=== PATIENT | female | born 1945 | race Caucasian/White ===

== ENCOUNTER 2019-10-21 11:18 | Emergency (ER) | payer MEDICARE, OTHER, SELFPAY ==
--- NOTE | ~2019-10-21 | XR_ITS ---
XR chest 2V DATE: 10/21/2019 12:18 INDICATION: Fever, sore throat, weakness TECHNIQUE: PA and lateral views COMPARISON: 08/01/2019 AP and lateral chest FINDINGS: Normal heart size. No hilar or mediastinal enlargement. No pulmonary infiltrate or consolid ation, pleural effusion or pulmonary vascular congestion or pneumothorax. There is some increased density overlying the right apex probably associated with the right first rib based upon comparison with 08/01/2019 AP and lateral chest. There is degenerative spurring of the thoracic and lumbar spine. IMPRESSION: No active cardiopulmonary disease Reviewed, dictated and finalized at location B.
--- NOTE | 2019-10-21 11:48 | ECG_ITS ---
Measurements Intervals [place] Rate: 70 P: 58 NC: 144 QRS: -14 QRSD: 85 T: 16 QT: 374 QTc: 404 Interpretive Statements SINUS RHYTHM MINIMAL Q WAVES- LATERAL LEADS NONSPECIFIC T-WAVE ABNORMALITY- ANT/INF LEADS BORDERLINE ECG Electronically Signed On 10-21-2019 14:16:05 CDT by Kwan Marinelli D.O.
[2019-10-21 11:50] VITALS: BP 127/63; PULSE 81; RESP 18; TEMP 36.8; O2SAT 99
[2019-10-21 12:08] LABS: Glucose Point of Care 108 (65-105)
[2019-10-21 12:16] LABS: Basophils Absolute Auto 0.1 K/mm3 (0.0-0.1); Basophils Percent Auto 1.1 % (0.2-1.2); Eosinophils Percent Auto 0.3 % (0-4.4); Hematocrit 38.5 % (37.0-47.0); Hemoglobin 13.3 g/dL (12.0-15.0); Immature Granulocyte Absolute 0.01 K/mm3 (0.00-0.031); Immature Granulocyte Percent A 0.2 % (0-0.5); Lymphocytes Absolute Auto 2.22 K/mm3 (0.9-3.2); Lymphocytes Percent Auto 36.2 % (18.3-44.2); Mean Corpuscular HGB Conc 34.5 g/dl (32-36); Mean Corpuscular Hemoglobin 30.8 pg (26-34); Mean Corpuscular Volume 89.1 fl (80-100); Mean Platelet Volume 9.3 fl (7.4-10.4); Monocytes Absolute Auto 0.4 K/mm3 (0.1-0.6); Neutrophils Absolute Auto 3.4 K/mm3 (1.3-6.7); Neutrophils Percent Auto 55.2 % (45.5-73.1); Platelet Count Result 267 k/mm3 (150-375); Red Blood Count 4.32 M/mm3 (4.2-5.4); Red Cell Distribution Width 11.5 % (11.5-14.5); White Blood Count 6.1 K/mm3 (4.5-10.0)
[2019-10-21 12:29] LABS: Alanine Aminotransferase 27 U/L (4-35); Albumin Level 4.8 g/dL (3.5-5.1); Alkaline Phosphatase 63 U/L (38-126); Aspartate Amino Transferase 35 U/L (14-36); Bilirubin,Total 0.6 mg/dL (0.2-1.3); Blood Urea Nitrogen 14 mg/dL (7-17); Calcium 10.2 mg/dL (8.4-10.2); Carbon Dioxide 30 mmol/L (22-30); Chloride 102 mmol/L (98-107); Estimated CRCL calculation 50 ml/min; Estimated Glomerular Filt Rate > 60; Glucose 102 mg/dL (65-105); Potassium 4.1 mmol/L (3.4-5.0); Sodium 139 mmol/L (137-145)
[2019-10-21 12:50] VITALS: PULSE 88
[2019-10-21 12:51] VITALS: BP 151/77; PULSE 78; RESP 16; TEMP 37.3; O2SAT 100
--- NOTE | 2019-10-21 13:02 | ED.WEAKNESS ---
HPI - Weakness General Chief complaint: Weakness Stated complaint: weakness/hand numbness Time Seen by Provider: 10/21/19 12:58 Source: patient and RN notes reviewed Mode of arrival: ambulatory Limitations: no limitations History of Present Illness HPI Narrative: Pt is a 74 y/o female presenting to the ED c/o generalized weakness. Pt reports she started experiencing generalized weakness 3 days ago along with body aches, dizziness, diaphoresis, chills, FERRO, bilateral hand numbness, subjective fever, mild diarrhea, nausea, and mild SOB. Pt denies cough, ST, rhinorrhea, vomiting, CP, dysuria, or urinary frequency. Pt states she has been taking Tylenol, DayQuil, and Mucinex for her Sx's. Pt notes her PCP is Dr. Acevedo. Onset (ago): day(s) (3) Location: generalized Associated symptoms: diaphoresis, fever/chills (Chills, subjective fever), headaches, nausea/vomiting (Nausea, no vomiting), shortness of breath (Mild) and other (Body aches; Dizziness; Bilateral hand numbness; Mild diarrhea) Related Data Home Medications Medication Instructions Recorded Confirmed acetaminophen 500 mg tablet 500 mg PO Q4H PRN 07/06/19 10/19/19 aspirin 81 mg tablet,delayed 81 mg PO DAILY 07/06/19 10/19/19 release benzonatate 100 mg capsule 100 mg PO TID 07/06/19 10/19/19 calcium carbonate 600 mg calcium 600 mg PO BID 07/06/19 10/19/19 (1,500 mg) tablet cetirizine 10 mg tablet 5 mg PO DAILY PRN 07/06/19 10/19/19 cholecalciferol (vitamin D3) 25 1,000 unit PO DAILY 07/06/19 10/19/19 mcg (1,000 unit) capsule clobetasol 0.05 % scalp solution 1 applic TOPICAL BID 07/06/19 10/19/19 fluticasone propionate 50 2 spray NASAL DAILY 07/06/19 10/19/19 mcg/actuation nasal spray,suspension hydrochlorothiazide 12.5 mg tablet 12.5 mg PO DAILY 07/06/19 10/19/19 levothyroxine 50 mcg tablet 50 mcg PO DAILY 07/06/19 10/19/19 lisinopril 20 mg tablet 20 mg PO DAILY 07/06/19 10/19/19 simvastatin 40 mg tablet 40 mg PO DAILY 07/06/19 10/19/19 Allergies Allergy/AdvReac Type Severity Reaction Status Date / Time No Known Allergies Allergy Verified 10/19/19 10:14 Review of Systems Review of Systems: All systems reviewed & are unremarkable except as noted in HPI and below Constitutional: Constitutional: Reports body ache(s), Reports chills, Reports fever(s) (Subjective) and Reports weakness (Generalized) ENT: Denies sore throat and Denies other (Rhinorrhea) Cardiovascular: Cardiovascular: Denies chest pain and Reports diaphoresis Respiratory: Respiratory: Denies cough and Reports dyspnea (Mild) Gastrointestinal: Gastrointestinal: Reports diarrhea (Mild), Reports nausea and Denies vomiting Genitourinary: Genitourinary: Denies nocturia and Denies dysuria Neurologic: Reports dizziness, Reports headache(s) and Reports numbness (Bilateral hand) PMFSH Past Medical History Medical History (Updated 10/21/19 @ 14:41 by Ivonne Hernandez MD) Abdominal discomfort Anxiety Aortic regurgitation Bloating CAD (coronary artery disease) H/O: HTN (hypertension) Hypercholesteremia Pancreatic duct dilated Syncope Weight loss Surgical History Surgical History History of hysterectomy Hx of cardiac cath Stented coronary artery Social History Social History Smoking status: Never smoker Alcohol intake: current Gender identity (if verbalized by the patient): Female Exam Const: General: cooperative, no acute distress and alert Nutritional Appearance: well nourished Orientation/consciousness: patient oriented x3 Limitations: no limitations HENMT: Mouth: Yes lip normal Resp: Effort & Inspection: normal respiratory effort Auscultation: clear to auscultation bilaterally Cardio: Rate: regular rate Rhythm: regular rhythm GI: GI Palp: Yes Soft to palpation and No Tenderness to palpation present (GI) Auscultation: normal bowel sounds Skin: General skin exam: normal col
[2019-10-21 13:09] LABS: Add Urine Microscopic? YES; Appearance Urine Clear (Clear); Bilirubin Urine Negative (Negative); Blood Urine Negative (Negative); Color Urine Yellow (Yellow); Glucose Urine UA Negative (Negative); Ketones Urine Negative (Negative); Leukocyte Esterase Ur Negative LEU/UL (Negative); Mucus Urine Rare /lpf; Nitrate Urine Negative (Negative); Protein Urine Negative (Negative); RBC Urine 0-2 /hpf (0-2); Specific Grav Ur 1.016 (1.001-1.035); Squamous Epithelial Cell Urine Rare /hpf (Few); Urobilinogen Urine Negative mg/dL (<2.0); WBC Urine 0-3 /hpf
[2019-10-21 13:53] VITALS: BP 135/75; BP 136/74; BP 145/86; PULSE 74; PULSE 77; PULSE 85; RESP 16; O2SAT 97
== END 2019-10-21 15:25 | disposition home or self-care (01) ==
PROVIDERS: Emergency Provider Emergency Medicine; PCP Family Medicine
DX: I25.10 Atherosclerotic heart disease of native coronary artery without angina pectoris (principal); E78.00 Pure hypercholesterolemia, unspecified; Z95.5 Presence of coronary angioplasty implant and graft; Z79.82 Long term (current) use of aspirin; R94.31 Abnormal electrocardiogram [ECG] [EKG]
CPT/HCPCS: 36415; 71046; 80053; 81001; 82948; 84443; 85025; 87804; 93005; 99283

== ENCOUNTER 2022-01-16 08:45 | Outpatient (CLI) | payer MEDICARE, OTHER, SELFPAY ==
[2022-01-16 09:10] LABS: Hematocrit 37.7 % (37.0-47.0); Mean Corpuscular HGB Conc 34.5 g/dl (32-36); Mean Corpuscular Hemoglobin 31.2 pg (26-34); Mean Corpuscular Volume 90.4 fl (80-100); Mean Platelet Volume 9.1 fl (7.4-10.4); Platelet Count Result 226 k/mm3 (150-375); Red Blood Count 4.17 M/mm3 (4.2-5.4); Red Cell Distribution Width 11.7 % (11.5-14.5); White Blood Count 5.4 K/mm3 (4.5-10.0)
[2022-01-16 10:05] LABS: Alanine Aminotransferase 19 U/L (6-35); Albumin Level 4.9 g/dL (3.5-5.1); Alkaline Phosphatase 62 U/L (38-126); Anion Gap 9 mmol/L (8-16); Aspartate Amino Transferase 30 U/L (14-36); Bilirubin,Total 0.5 mg/dL (0.2-1.3); Blood Urea Nitrogen 20 mg/dL (7-17); Carbon Dioxide 27 mmol/L (22-30); Chloride 107 mmol/L (98-107); Cholesterol 152 mg/dL (0-200); Estimated Glomerular Filt Rate > 60; Glucose 106 mg/dL (65-110); HDL Direct 44 mg/dL; Potassium 4.4 mmol/L (3.4-5.0); Sodium 143 mmol/L (137-145); Triglycerides 156 mg/dL (<150)
[2022-01-16 10:16] LABS: LDL Cholesterol Direct 65 mg/dL
[2022-01-16 10:25] LABS: Vitamin D 25 Hydroxy 57.9 ng/mL
[2022-01-16 10:44] LABS: T4 Thyroxine 9.48 ug/dL (5.53-11.0)
== END 2022-01-16 08:46 | disposition home or self-care (01) ==
PROVIDERS: PCP Family Medicine; Visit Provider Nurse Practitioner Family
DX: E03.9 Hypothyroidism, unspecified (principal); I10 Essential (primary) hypertension; E55.9 Vitamin D deficiency, unspecified; R14.0 Abdominal distension (gaseous)
CPT/HCPCS: 36415; 80053; 80061; 82306; 84436; 84443; 85027

== ENCOUNTER 2022-12-31 15:52 | Outpatient (CLI) | payer MEDICARE, OTHER, SELFPAY ==
--- NOTE | ~2022-12-31 | XR_ITS ---
EXAMINATION: XR sternum min 2V DATE: 12/31/2022 16:29 INDICATION: Unspecified fall, initial encounter. TECHNIQUE: 2 views of the sternum were obtained. COMPARISON: Chest 2 views 10/21/2019 FINDINGS: Bone alignment is normal. There is a transverse fracture involving medial third of right cl avicle. The sternum is normal. IMPRESSION: 1. Transverse fracture involving medial third of right clavicle. 2. Normal sternum. Reviewed, dictated and finalized at location A.
--- NOTE | ~2022-12-31 | XR_ITS ---
EXAMINATION: XR sternoclavicular joint BI DATE: 12/31/2022 16:29 INDICATION: Other specified disorders of bone. TECHNIQUE: 3 views of the sternoclavicular joints were obtained. COMPARISON: Chest 2 views 10/21/2019 FINDINGS: Bone alignment is normal. There is a transverse fracture involving the medial third of righ t clavicle. The distal fracture fragment demonstrates 3 mm inferior displacement. There is mild osteo arthritis of the sternoclavicular joints. IMPRESSION: 1. Transverse fracture involving the medial third of right clavicle. Reviewed, dictated and finalized at location A.
== END 2022-12-31 15:53 | disposition home or self-care (01) ==
PROVIDERS: PCP Family Medicine; Visit Provider Nurse Practitioner Family
DX: M89.8X1 Other specified disorders of bone, shoulder (principal); S42.011A Anterior displaced fracture of sternal end of right clavicle, initial encounter for closed fracture; X58.XXXA Exposure to other specified factors, initial encounter
CPT/HCPCS: 71120; 71130

== ENCOUNTER 2023-01-03 07:21 | Outpatient (CLI) | payer MEDICARE, OTHER, SELFPAY ==
--- NOTE | ~2023-01-03 | CT_ITS ---
EXAMINATION: CT soft tissue neck chest w DATE: 01/03/2023 08:21 INDICATION: Right clavicle fracture. TECHNIQUE: Computed tomography (CT) of the neck and chest was performed with 75 mL Omnipaque-350 intr avenous contrast. Automated exposure control and iterative reconstruction technique were employed. Th e dose-length product was 422.21 mGy-cm. COMPARISON: Sternoclavicular joint radiographs 12/31/2022 FINDINGS: CT NECK: There are no pathologically enlarged lymph nodes. There is mild plaque in the proximal inter nal carotid arteries with 0% stenosis relative to normal distal artery lumen diameters. There is apolonia re cervical spondylosis. CT CHEST: The lungs demonstrate mild atelectasis. A calcified right lung nodule and calcified mediast inal lymph nodes are consistent with old granulomatous disease. No pleural effusion. The heart size i s normal. No pericardial effusion. There are coronary artery calcifications. There is no pericardial effusion. There is cortical thinning of right kidney. There is an oblique fracture involving medial r ight clavicle. The distal fracture fragment demonstrates 6 mm anterior displacement, 2 mm inferior di splacement, and 2 mm overriding. There is severe spondylosis at T5-T6 and mild to moderate spondylosi s at other levels. IMPRESSION: 1. Oblique fracture of medial right clavicle. Reviewed, dictated and finalized at location A.
[2023-01-03 08:13] LABS: Estimated Glomerular Filt Rate > 60
== END 2023-01-03 07:22 | disposition home or self-care (01) ==
LOC: ANHIMG 07:24
PROVIDERS: PCP Family Medicine; Visit Provider Nurse Practitioner Family
DX: S42.001D Fracture of unspecified part of right clavicle, subsequent encounter for fracture with routine healing (principal); X58.XXXD Exposure to other specified factors, subsequent encounter
CPT/HCPCS: 70491; 71260; Q9967

== ENCOUNTER 2023-01-15 15:15 | Outpatient (CLI) | payer MEDICARE, OTHER, SELFPAY ==
[2023-01-16 08:04] LABS: Hemoglobin 12.9 g/dL (12.0-15.0); Red Blood Count 4.15 M/mm3 (4.2-5.4); White Blood Count 5.2 K/mm3 (4.5-10.0)
[2023-01-16 08:05] LABS: Hematocrit 37.7 % (37.0-47.0); Mean Corpuscular HGB Conc 34.2 g/dl (32-36); Mean Corpuscular Hemoglobin 31.1 pg (26-34); Mean Corpuscular Volume 90.8 fl (80-100); Mean Platelet Volume 8.9 fl (7.4-10.4); Platelet Count Result 244 k/mm3 (150-375); Red Cell Distribution Width 11.8 % (11.5-14.5)
[2023-01-16 08:07] LABS: Alanine Aminotransferase 27 U/L (6-35); Albumin Level 4.6 g/dL (3.5-5.1); Alkaline Phosphatase 60 U/L (38-126); Anion Gap 6 mmol/L (8-16); Aspartate Amino Transferase 36 U/L (14-36); Bilirubin,Total 0.7 mg/dL (0.2-1.3); Blood Urea Nitrogen 24 mg/dL (7-17); Calcium 9.1 mg/dL (8.4-10.2); Carbon Dioxide 30 mmol/L (22-30); Chloride 102 mmol/L (98-107); Cholesterol 145 mg/dL (0-200); Estimated Glomerular Filt Rate > 60; Free T4 Free Thyroxine 1.05 ng/mL (0.78-2.19); Glucose 104 mg/dL (65-110); HDL Direct 42 mg/dL; LDL Cholesterol Direct 64 mg/dL; Potassium 4.5 mmol/L (3.4-5.0); Sodium 138 mmol/L (137-145); Triglycerides 213 mg/dL (<150)
[2023-01-16 08:40] LABS: Vitamin D 25 Hydroxy 43.3 ng/mL
== END 2023-01-15 15:16 | disposition home or self-care (01) ==
LOC: ANHLAB 15:18
PROVIDERS: PCP Family Medicine; Visit Provider Family Medicine
DX: E03.9 Hypothyroidism, unspecified (principal); E55.9 Vitamin D deficiency, unspecified; I10 Essential (primary) hypertension; K86.89 Other specified diseases of pancreas; E78.2 Mixed hyperlipidemia; Z13.228 Encounter for screening for other metabolic disorders
CPT/HCPCS: 36415; 80053; 80061; 82306; 84439; 84443; 85027

== ENCOUNTER 2023-02-11 09:17 | Outpatient (CLI) | payer MEDICARE, OTHER, SELFPAY ==
--- NOTE | ~2023-02-11 | XR_ITS ---
Lumbosacral Spine: AP, oblique, and lateral views, with neutral, flexion, and extension positioning Clinical History: Pain Findings: The normal lordotic curve is maintained. The vertebral bodies and posterior elements are i ntact. No instability evident on flexion or extension. There is moderate degenerative disc narrowing at L4-L5. There is moderate to advanced facet arthropathy at L4-L5 and L5-S1. The sacroiliac joints a re normally outlined. Impression: Moderate degenerative spondylosis at the lower lumbar spine. No fracture or subluxation. No instability evident. Reviewed, dictated and finalized at location . Impression: Moderate degenerative spondylosis at the lower lumbar spine. No fracture or subluxation. No instability evident.
--- NOTE | ~2023-02-11 | XR_ITS ---
AP view of the pelvis and AP and lateral views of the left hip Clinical history: Pain Findings: No acute fracture or dislocation is seen. Osseous alignment is anatomic. Bilateral hip and SI joint spaces are preserved. Soft tissues are unremarkable. Impression: No significant abnormality is seen. Reviewed, dictated and finalized at [facility]. Impression: No significant abnormality is seen.
== END 2023-02-11 09:18 | disposition home or self-care (01) ==
PROVIDERS: PCP Family Medicine; Visit Provider Family Medicine
DX: M25.552 Pain in left hip (principal); M54.50 Low back pain, unspecified; R20.0 Anesthesia of skin
CPT/HCPCS: 72114; 73502

== ENCOUNTER 2023-02-24 07:47 | Outpatient (CLI) | payer MEDICARE, OTHER, SELFPAY ==
--- NOTE | ~2023-02-24 | MR_ITS ---
MRI of the lumbar spine Clinical History: Spondylosis Technique: Axial T2-weighted images, and sagittal T1-weighted, T2-weighted, and T2 fat-sat images wer e acquired. Findings: There is acute compression fracture at the inferior endplate region of L4, with minimal if any significant loss of height. There is probable additional compression type fracture line at the campuzano perior endplate region of L5 with surrounding marrow edema, without loss of height. Remaining osseous structures are intact. At L1-L2, there is no disc bulge or herniation. There is minimal facet joint hypertrophy. No central canal stenosis or neural foraminal narrowing. At L2-L3, there is minimal disc bulge and minimal facet arthropathy. No central canal stenosis or joanna ral foraminal narrowing. At L3-L4, there is minimal disc bulge with minimal facet arthropathy. No central canal stenosis or ne ural foraminal narrowing. At L4-L5, there is diffuse disc bulge with moderate to advanced facet arthropathy. No central canal s tenosis. There is severe left neural foraminal narrowing and moderate to severe right neural foramina l narrowing. At L5-S1, there is minimal disc bulge with moderate facet arthropathy. No central canal stenosis or n eural foraminal narrowing. Paravertebral soft tissues are unremarkable. Impression: Acute compression fractures of L4 and L5, as detailed above, with minimal, if any, loss of height. Moderate degenerative spondylosis at L4-L5. Reviewed, dictated and finalized at [facility]. Impression: Acute compression fractures of L4 and L5, as detailed above, with minimal, if a ny, loss of height. Moderate degenerative spondylosis at L4-L5.
== END 2023-02-24 07:48 | disposition home or self-care (01) ==
PROVIDERS: PCP Family Medicine; Visit Provider Family Medicine
DX: M47.16 Other spondylosis with myelopathy, lumbar region (principal)
CPT/HCPCS: 72148

== ENCOUNTER 2023-06-03 06:54 | Day surgery (SDC) | payer MEDICARE, OTHER, SELFPAY ==
[2023-05-30 11:25] VITALS: BMI 21.1
--- NOTE | ~2023-06-03 | XR_ITS ---
Indication: Bilateral L4-5 transforaminal epidural steroid injection TECHNIQUE: Fluoroscopy used during Bilateral L4-5 transforaminal epidural steroid injection performe d by [Ezekiel Dhillon MD] on 06/03/2023. Fluoroscopy time is 18 seconds with 3 fluoroscopic imag es captured. FINDINGS: Correlate with procedure note. IMPRESSION: Fluoroscopy used during Bilateral L4-5 transforaminal epidural steroid injection. Reviewed, dictated and finalized at location A. IMPRESSION: Fluoroscopy used during Bilateral L4-5 transforaminal epidural ster oid injection.
--- NOTE | 2023-06-03 05:43 | WPDHPUPDATE1 ---
History and Physical Update Update Date/Time: 06/03/23 05:43 History and Physical has been reviewed, including an updated exam of the patient. There are NO changes in the patient's condition. Risks, benefits, and alternatives have been discussed and questions answered. Patient agrees to proceed with procedure.
[2023-06-03 09:15] VITALS: BP 130/79; PULSE 66; RESP 20; TEMP 37.2; O2SAT 100
[2023-06-03 11:58] VITALS: BP 182/86; PULSE 71; RESP 12; O2SAT 100
[2023-06-03] MEDS: LIDOCAINE HCL 1% PF INJ 5 ML VIAL INFILTRATE (11:59)
[2023-06-03] MEDS: LIDOCAINE HCL 2% PF INJ 5 ML VIAL 2 ML INFILTRATE (11:59)
[2023-06-03 12:04] VITALS: BP 152/72; PULSE 67; RESP 12; O2SAT 100
--- NOTE | 2023-06-03 12:07 | W.PM.PROC2 ---
Procedure Note - Detailed Date of Procedure 06/03/23 Pre-op Diagnosis Lumbar Radiculopathy, Lumbar Spinal Stenosis Post-op Diagnosis Same Procedure Performed bilateral L4-5 transforaminal epidural steroid injection with fluoroscopic guidance and contrast control. Surgeon Ezekile Dhillon MD Anesthesia Local Description of Procedure INFORMED CONSENT: Risks, benefits and alternatives to the procedure were discussed in detail with the patient who expressed explicit understanding and consent to proceed. Patient was informed verbally and in written form regarding the risks associated with the procedure including the low risk of serious infection, bleeding/bruising, allergic reaction, nerve or organ injury, paralysis, procedural site pain or discomfort, worsening pain and/or mobility, failure to treat and/or disfigurement. The patient expressed explicit understanding and consent to proceed. All materials required for the procedure were available prior to procedure start. Site and side was marked prior to procedure and confirmed in the presence of the patient. PROCEDURE IN DETAIL: The patient was brought to the procedural suite and placed in the prone position. Patient was made comfortable with use of pillows under the head/chest, hips and ankles. Skin overlying the injection site was prepared broadly with ChloraPrep applicator and draped in a sterile manner. Aseptic technique was employed throughout. The endplates of the vertebral body at the site of interest were aligned in the AP view. Ipsilateral oblique angulation was utilized to better visualize the neuroforamen of interest. Local anesthesia was established by infiltration with approximately 5 mL of 2% lidocaine via a 1-1/2 inch 27-gauge needle. A 22-gauge 3.5 inch Chris (pencil point) spinal needle was advanced until the needle approached the 6 o'clock position on the pedicle just superior to the exiting nerve root. on the Right at L4-5. Lateral view was utilized to confirm appropriate position of the needle tip within the superior and posterior portion of the respective foramen. In an AP view, 1 mL of Omnipaque 300 contrast medium was injected after negative aspiration for CSF, blood or other bodily fluid, showing appropriate neurogram without evidence of intravascular or intrathecal spread of contrast. Digital subtraction imaging was used with an additional 1ml of the same contrast medium to confirm absence of intravascular contrast spread. A 1mL solution containing 5 mg of dexamethasone was injected after negative repeat aspiration. Appropriate spread of the injectate was confirmed with washout of previously injected contrast. No parasthesias were elicited. Needle was removed completely intact without difficulty. The same exact procedure was repeated for all remaining levels on the contralateral side, left L4-5 neural foramen, modified as necessary to accommodate for the new target location with identical findings and results and no evidence of complication. Images were saved and documented in the patient chart. Patient's skin was cleaned and sterile bandage applied. The patient tolerated the procedure well. The patient was transported to the recovery area in stable condition where they were observed for an appropriate amount of time prior to discharge, without evidence of complication. The patient was instructed to avoid excessive activity for the next 48 hours, including climbing and frequent use of stairs. Showers only for 48 hours. They were instructed not to drive or operate heavy machinery for 24 hours. They are to monitor for severe headaches, fevers, chills, night sweats, erythema/swelling at the site or any other signs of infection, bleeding/bruising, bowel or bladder changes as well as new pain, weakness or numbness in the upper or lower extremity. Should they notice these changes, they are instructed to call our office immediately or report directly to the nearest Emergency Department if no answer
[2023-06-03 12:15] VITALS: BP 130/79; PULSE 66; RESP 20; O2SAT 100
--- NOTE | 2023-06-03 12:23 | SUR.PHASEII ---
bandaid intact upon arrival and discharge
== END 2023-06-03 12:20 | disposition home or self-care (01) ==
LOC: ASC 08:50
PROVIDERS: PCP Family Medicine; Visit Provider Anesthesiology Pain Medicine
PROC: (CPT 64483; principal; 2023-06-03 10:00)
DX: M54.16 Radiculopathy, lumbar region (principal); M48.061 Spinal stenosis, lumbar region without neurogenic claudication
CPT/HCPCS: 64483 ×2; 99199

== ENCOUNTER 2023-07-15 06:43 | Day surgery (SDC) | payer MEDICARE, OTHER, SELFPAY ==
[2023-07-10 09:04] VITALS: BMI 21.7
--- NOTE | ~2023-07-15 | XR_ITS ---
EXAMINATION: XR fluoroscopy no charge INDICATION: Bilateral L3, L4, and L5 medial block TECHNIQUE: 11 intraoperative fluoroscopic images are submitted for review. COMPARISON: None available FINDINGS: Fluoroscopic images demonstrate bilateral injections at L3, L4, and L5. Please refer to pro cedure note for full details. IMPRESSION: 1. Please refer to procedure note for full details. Reviewed, dictated and finalized at location L. AGENT
--- NOTE | 2023-07-15 05:36 | WPDHPUPDATE1 ---
History and Physical Update Update Date/Time: 07/15/23 05:36 History and Physical has been reviewed, including an updated exam of the patient. There are NO changes in the patient's condition. Risks, benefits, and alternatives have been discussed and questions answered. Patient agrees to proceed with procedure.
[2023-07-15 08:19] VITALS: BP 143/69; PULSE 68; RESP 14; TEMP 37.1; O2SAT 100
[2023-07-15 09:50] VITALS: BP 150/72; PULSE 58; RESP 14; O2SAT 98
[2023-07-15 09:55] VITALS: BP 142/66; PULSE 58; RESP 14; O2SAT 97
[2023-07-15 10:00] VITALS: BP 132/67; PULSE 61; RESP 14; O2SAT 96
--- NOTE | 2023-07-15 10:01 | W.PM.PROC2 ---
Procedure Note - Detailed Date of Procedure 07/15/23 Pre-op Diagnosis Lumbar Spondylosis with Myelopathy, chronic low back pain Post-op Diagnosis Same Procedure Performed bilateral L3, L4, L5 medial branch/ dorsal ramus nerve block addressing the bilateral L4-5, L5-S1 facet joints under fluoroscopic guidance with contrast control. Surgeon Ezekiel Dhillon MD Anesthesia Local Description of Procedure INFORMED CONSENT: Risks, benefits and alternatives to the procedure were discussed in detail with the patient who expressed explicit understanding and consent to proceed. Patient was informed verbally and in written form regarding the risks associated with the procedure including the low risk of serious infection, bleeding/bruising, allergic reaction, nerve or organ injury, paralysis, procedural site pain or discomfort, worsening pain and/or mobility, failure to treat and/or disfigurement. The patient expressed explicit understanding and consent to proceed. All materials required for the procedure were available prior to procedure start. Site and side were marked prior to procedure and confirmed in the presence of the patient. PROCEDURE IN DETAIL: The patient was brought to the procedural suite and placed in the prone position. Patient was made comfortable with use of pillows under the head/chest, hips and ankles. Skin overlying the injection site on the affected side(s) was prepared broadly with ChloraPrep applicator and draped in a sterile manner. Aseptic technique was used throughout. The endplates of the vertebral bodies at the site(s) of interest were aligned in the AP view. Ipsilateral oblique angulation was utilized to optimize visualization of the intersection between the superior articulating process and transverse process at each target site. Local anesthesia was established by infiltration with approximately 5 mL of 1% lidocaine via a 1-1/2 inch 27-gauge needle. A 25-gauge 3.5 inch Quincke spinal needle was advanced until the needle tip contacted periosteum at the target site, Right L3. Lateral view was utilized to confirm the appropriate placement of the needle tip just anterior to the facet line and superior to the pedicle. In the Lateral view, 0.25 mL of Omnipaque 300 contrast medium was injected after negative aspiration for CSF, blood or other bodily fluid, showing appropriate extra-articular spread of contrast without evidence of intravascular, foraminal or intrathecal placement. A 0.5 mL solution of 0.5% PF bupivacaine was injected after negative repeat aspiration. Appropriate spread of the injectate was confirmed with washout of previously injected contrast. No parasthesias were elicited. Needle was removed completely intact without difficulty. The same exact procedure was repeated for all remaining levels on the ipsilateral side, right L4, L5 medial branches/dorsal ramus, modified as necessary to accommodate for the new target location with identical findings and results and no evidence of complication. [The same exact procedure was repeated for all remaining levels on the contralateral side, left L3, L4, L5 medial branches/dorsal ramus, modified as necessary to accommodate for the new target location with identical findings and results and no evidence of complication.] Images were saved and documented in the patient chart. Patient's skin was cleaned and sterile bandage applied. The patient tolerated the procedure well. The patient was transported to the recovery area in stable condition where they were observed for an appropriate amount of time prior to discharge, without evidence of complication. Patient was instructed on the appropriate completion of a pain diary over the next 12-24 hours. The patient was instructed to avoid excessive activity for the next 48 hours, including climbing and frequent use of stairs. Showers only for 48 hours. They were instructed not to drive or operate heavy machinery for 24 hours. They are to monitor for severe
[2023-07-15] MEDS: BUPivacaine HCL 0.5% 10 ML AMP 3 ML INFILTRATE (10:04)
[2023-07-15] MEDS: LIDOCAINE HCL 1% PF INJ 5 ML VIAL 3 ML AFFCTD EYE (10:05)
[2023-07-15 10:06] VITALS: BP 136/86; PULSE 61; RESP 15; O2SAT 97
== END 2023-07-15 10:15 | disposition home or self-care (01) ==
LOC: ASC 07:50
PROVIDERS: PCP Family Medicine; Visit Provider Anesthesiology Pain Medicine
PROC: (CPT 64493; principal; 2023-07-15 09:00)
DX: M47.16 Other spondylosis with myelopathy, lumbar region (principal); M54.59 Other low back pain
CPT/HCPCS: 64493 ×2; 99199

== ENCOUNTER 2023-09-02 05:53 | Day surgery (SDC) | payer MEDICARE, OTHER, SELFPAY ==
[2023-08-25 12:21] VITALS: BMI 21.9
--- NOTE | ~2023-09-02 | XR_ITS ---
EXAMINATION: XR fluoroscopy no charge DATE: 09/02/2023 8:25 PUNCH MOLDER INDICATION: EMELYN L3,L4,L5 NERVE BK . TECHNIQUE: 11 fluoroscopic images of the lumbar spine were obtained during bilateral L3-L5 nerve bloc ks performed by the surgeon. I was not present during the procedure. Fluoroscopy exposure time was 20 .6 seconds. Air Kerma 2.83 mGy. COMPARISON: 07/15/2023 FINDINGS: Injection needles approach the lateral aspects of L3-L5 followed by contrast injection. IMPRESSION: Fluoroscopic documentation of bilateral L3, L4, L5 nerve block. Please refer to the operative note fo r complete procedural details . Reviewed, dictated and finalized at location K. H MOLDER IMPRESSION: Fluoroscopic documentation of bilateral L3, L4, L5 nerve block. Please refer to the operative note for complete procedural details .
--- NOTE | 2023-09-02 06:52 | PM.HPGS ---
History of Present Illness History of Present Illness Consent: Risks, benefits, and alternatives have been discussed and questions answered. Patient agrees to proceed with procedure. Chief complaint: Lumbar Spondylosis, chronic low back pain Narrative: Cinthia Ross is a 78 year old female with chronic, recalcitrant and disabling bilateral lumbosacral low back pain secondary to degenerative spondylosis with failure to respond to aggressive conservative measures including PT, oral and topical analgesics, opioid and nonopioid analgesics, rest, time and activity/behavioral modification over the past 1-2 years who presents for diagnostic/prognostic medial branch blocks (#2) under fluoroscopic guidance and with contrast control. patient has had a previous positive response to initial medial branch blocks with bupivacaine lasting for 4-6 hours, concordant with disease and expected duration of response. consider thermal RF ablation depending upon response. Review of Systems Review of Systems: Patient denies any new infectious, allergic, cardiopulmonary, neurologic or constitutional symptoms or changes in activity tolerance or exercise capacity including new or progressive SOB/PATRICIO, peripheral edema, productive cough, dysuria, nausea/vomiting, diarrhea, weight change, fevers/chills/night sweats, new or progressive neurologic deficit, cognitive or mood changes since last seen, except as documented in the HPI. All systems reviewed & are unremarkable except as noted in HPI and below PMFSH Past Medical History Medical History Abdominal discomfort Anxiety Aortic regurgitation Bloating BMI 21.0-21.9, adult CAD (coronary artery disease) Clavicular fracture Right clavicle, 12/31/2022 H/O: HTN (hypertension) Hypercholesteremia Hyperlipidemia Hypertension Left hip pain Leg numbness Low back pain Lumbar spondylosis with myelopathy Pancreatic duct dilated Syncope Weight loss Surgical History Surgical History History of hysterectomy Hx of cardiac cath Stented coronary artery Family History Family History Father No problems noted. Mother No problems noted. Sibling No problems noted. Social History Social History Smoking status: Never smoker Tobacco type: cigarettes Second hand tobacco smoke exposure: No Alcohol intake: current Drinks per week: 3 Alcohol use details: WINE WITH DINNER Substance use: never Substance use type: does not use Lack of Transportation: No Lack of Food: Never True Current Housing: I Have Housing Concerned About Future Housing: No Difficulty Paying Gas/Electric Bills: No Difficulty Paying for Meds: No Currently Unemployed: No Education: Grade School Difficulty w/ Childcare or Family Care: No Living arrangements: with family Occupation/Education: retired Additional occupation/education comments: Homemaker Gender identity (if verbalized by the patient): Female Spiritual care concerns: No Meds Home Medications and Allergies Home Medications Medication Instructions Recorded Confirmed Type hydrocortisone 2.5 % topical cream 1 applic topical TID PRN itching 09/12/21 08/25/23 Rx #30 grams cholecalciferol (vitamin D3) 25 1,000 unit PO DAILY #90 caps 02/07/22 08/25/23 Rx mcg (1,000 unit) capsule meclizine 25 mg tablet 25 mg PO BID PRN dizziness #90 tabs 12/31/22 08/25/23 Rx aspirin 81 mg tablet,delayed 81 mg PO DAILY #90 tabs 01/28/23 08/25/23 Rx release (Adult Aspirin Regimen) cetirizine 10 mg tablet 10 mg PO DAILY PRN Allergy 01/28/23 08/25/23 Rx Symptoms #90 tabs clobetasol 0.05 % scalp solution 1 applic topical BID #50 mL 01/28/23 08/25/23 Rx fluticasone propionate 50 2 spray intranasal
--- NOTE | 2023-09-02 06:56 | WPDHPUPDATE1 ---
History and Physical Update Update Date/Time: 09/02/23 06:56 History and Physical has been reviewed, including an updated exam of the patient. There are NO changes in the patient's condition. Risks, benefits, and alternatives have been discussed and questions answered. Patient agrees to proceed with procedure.
--- NOTE | 2023-09-02 06:57 | W.PM.PROC2 ---
Procedure Note - Detailed Date of Procedure 09/02/23 Pre-op Diagnosis Lumbar Spondylosis, chronic low back pain Post-op Diagnosis Same Procedure Performed Bilateral L3, L4, L5 medial branch/dorsal ramus nerve blocks (#2) addressing the bilateral L4-5, L5-S1 facet joints under fluoroscopic guidance with contrast control. Surgeon Ezekiel Dhillon MD Anesthesia Local Description of Procedure INFORMED CONSENT: Risks, benefits and alternatives to the procedure were discussed in detail with the patient who expressed explicit understanding and consent to proceed. Patient was informed verbally and in written form regarding the risks associated with the procedure including the low risk of serious infection, bleeding/bruising, allergic reaction, nerve or organ injury, paralysis, procedural site pain or discomfort, worsening pain and/or mobility, failure to treat and/or disfigurement. The patient expressed explicit understanding and consent to proceed. All materials required for the procedure were available prior to procedure start. Site and side were marked prior to procedure and confirmed in the presence of the patient. PROCEDURE IN DETAIL: The patient was brought to the procedural suite and placed in the prone position. Patient was made comfortable with use of pillows under the head/chest, hips and ankles. Skin overlying the injection site on the affected side(s) was prepared broadly with ChloraPrep applicator and draped in a sterile manner. Aseptic technique was used throughout. The endplates of the vertebral bodies at the site(s) of interest were aligned in the AP view. Ipsilateral oblique angulation was utilized to optimize visualization of the intersection between the superior articulating process and transverse process at each target site. Local anesthesia was established by infiltration with approximately 5 mL of 1% lidocaine via a 1-1/2 inch 27-gauge needle. A 25-gauge 3.5 inch Quincke spinal needle was advanced until the needle tip contacted periosteum at the target site, Right L3. Lateral view was utilized to confirm the appropriate placement of the needle tip just anterior to the facet line and superior to the pedicle. In the Lateral view, 0.25 mL of Omnipaque 300 contrast medium was injected after negative aspiration for CSF, blood or other bodily fluid, showing appropriate extra-articular spread of contrast without evidence of intravascular, foraminal or intrathecal placement. A 0.5 mL solution of 2.0% preservative-free lidocaine was injected after negative repeat aspiration. Appropriate spread of the injectate was confirmed with washout of previously injected contrast. No parasthesias were elicited. Needle was removed completely intact without difficulty. The same exact procedure was repeated for all remaining levels on the ipsilateral side, right L4, L5 medial branches/dorsal ramus, modified as necessary to accommodate for the new target location with identical findings and results and no evidence of complication. The same exact procedure was repeated for all remaining levels on the contralateral side, left L3, L4, L5 medial branches/dorsal ramus, modified as necessary to accommodate for the new target location with identical findings and results and no evidence of complication. Images were saved and documented in the patient chart. Patient's skin was cleaned and sterile bandage applied. The patient tolerated the procedure well. The patient was transported to the recovery area in stable condition where they were observed for an appropriate amount of time prior to discharge, without evidence of complication. Patient was instructed on the appropriate completion of a pain diary over the next 12-24 hours. The patient was instructed to avoid excessive activity for the next 48 hours, including climbing and frequent use of stairs. Showers only for 48 hours. They were instructed not to drive or operate heavy machinery for 24 hours. They are to monitor for sev
[2023-09-02 07:29] VITALS: BP 126/77; PULSE 64; RESP 20; TEMP 36.7; O2SAT 99
[2023-09-02 08:35] VITALS: BP 136/67; PULSE 63; RESP 15; O2SAT 97
[2023-09-02 08:42] VITALS: BP 133/71; PULSE 61; RESP 10; O2SAT 96
[2023-09-02] MEDS: LIDOCAINE HCL 1% PF INJ 5 ML VIAL AFFCTD EYE (08:45)
[2023-09-02] MEDS: LIDOCAINE HCL 2% PF INJ 5 ML VIAL 3 ML INFILTRATE (08:45)
[2023-09-02 08:51] VITALS: BP 138/76; PULSE 65; RESP 18; O2SAT 98
== END 2023-09-02 09:04 | disposition home or self-care (01) ==
PROVIDERS: PCP Family Medicine; Visit Provider Anesthesiology Pain Medicine
PROC: (CPT 64493; principal; 2023-09-02 08:15)
DX: M47.816 Spondylosis without myelopathy or radiculopathy, lumbar region (principal); M54.59 Other low back pain
CPT/HCPCS: 64493 ×2; 99199

== ENCOUNTER 2023-09-15 11:17 | Outpatient (CLI) | payer MEDICARE, OTHER, SELFPAY ==
--- NOTE | 2023-09-15 11:48 | ECG_ITS ---
Measurements Intervals [place] Rate: 64 P: 42 WA: 149 QRS: -5 QRSD: 90 T: 48 QT: 393 QTc: 407 Interpretive Statements SINUS RHYTHM NONSPECIFIC T-WAVE ABNORMALITY BORDERLINE ECG COMPARED TO ECG 10/21/2019 14:05:14 NO DIFFERENCE Electronically Signed On 09-15-2023 15:08:48 PANEL SAW OPERATOR by Nic Wiseman M.D.
[2023-09-15 12:17] LABS: Anion Gap 8 mmol/L (8-16); Blood Urea Nitrogen 16 mg/dL (7-17); Calcium 9.9 mg/dL (8.4-10.2); Carbon Dioxide 29 mmol/L (22-30); Chloride 103 mmol/L (98-107); Estimated Glomerular Filt Rate > 60; Glucose 109 mg/dL (65-110); Sodium 140 mmol/L (137-145)
== END 2023-09-15 11:18 | disposition home or self-care (01) ==
PROVIDERS: PCP Family Medicine; Visit Provider Anesthesiology
DX: Z01.818 Encounter for other preprocedural examination (principal); R94.31 Abnormal electrocardiogram [ECG] [EKG]
CPT/HCPCS: 36415; 80048; 93005

== ENCOUNTER 2023-09-23 05:51 | Day surgery (SDC) | payer MEDICARE, OTHER, SELFPAY ==
[2023-09-15 10:10] VITALS: BMI 20.6
--- NOTE | ~2023-09-23 | XR_ITS ---
EXAMINATION: XR fluoroscopy no charge INDICATION: Bilateral femoral radiofrequency ablation at L3, L4, and L5. TECHNIQUE: 191 intraoperative fluoroscopic images are submitted for review. Total fluoroscopic time w as 52.9 seconds. COMPARISON: None available FINDINGS: Fluoroscopic images demonstrate needles bilaterally which appear to project at the L3, L4, and L5 neuroforamina. IMPRESSION: 1. Please refer to procedure note for full details. Reviewed, dictated and finalized at location L. WARE ASSET MANAGER
--- NOTE | 2023-09-23 06:09 | WPDHPUPDATE1 ---
History and Physical Update Update Date/Time: 09/23/23 06:09 History and Physical has been reviewed, including an updated exam of the patient. There are NO changes in the patient's condition. Risks, benefits, and alternatives have been discussed and questions answered. Patient agrees to proceed with procedure.
--- NOTE | 2023-09-23 06:10 | W.PM.PROC2 ---
Procedure Note - Detailed Date of Procedure 09/23/23 Pre-op Diagnosis Lumbosacral spondylosis. chronic low back pain Post-op Diagnosis Same Procedure Performed Bilateral L3, L4, L5 medial branch/ dorsal ramus thermal radiofrequency ablation under fluoroscopic guidance. Surgeon Ezekiel Dhillon MD Anesthesia MAC and Local Description of Procedure INFORMED CONSENT: Risks, benefits and alternatives to the procedure were discussed in detail with the patient who expressed explicit understanding and consent to proceed. Patient was informed verbally and in written form regarding the risks associated with the procedure including the low risk of serious infection, bleeding/bruising, allergic reaction, nerve or organ injury, paralysis, procedural site pain or discomfort, worsening pain and/or mobility, failure to treat and/or disfigurement. The patient expressed explicit understanding and consent to proceed. All materials required for the procedure were available prior to procedure start. Site and side were marked prior to procedure and confirmed in the presence of the patient. PROCEDURE IN DETAIL: The patient was brought to the procedural suite and placed in the prone position. Patient was made comfortable with use of pillows under the head/chest, hips and ankles. Skin overlying the injection site on the affected side(s) was prepared broadly with ChloraPrep applicator and draped in a sterile manner. Aseptic technique was used throughout. The endplates of the vertebral bodies at the site(s) of interest were aligned in the AP view. Ipsilateral oblique angulation was utilized to optimize visualization of the intersection between the superior articulating process and transverse process at each target site. Local anesthesia was established by infiltration with approximately 5 mL of 1% lidocaine via a 1-1/2 inch 27-gauge needle. An 16-gauge 100mm [employer] RF needle with curved 10mm active tip was advanced in the AP view until the needle tip contacted the periosteum at the target site, Right L3 medial branch. Lateral view was utilized to adjust and confirm the appropriate placement of the needle tip just anterior to the facet line, superior to the pedicle and posterior to the foramen. The appropriately-sized RF cannula was inserted into the RF needle and motor stimulation performed with no subjective or objective evidence of recruited muscle activity with stimulation up to 3.0 volts at a frequency of 2Hz. 1.0 mL of 2.0% PF lidocaine was injected after negative aspiration. Grounding electrode in place and functioning. After a 90s pause, lesioning was performed to 90 degrees centigrade for 90s ensuring lack of symptoms in the extremity throughout. Needle was rotated 180 degrees and lesioning repeated in a similar manner. Patient tolerated this well. No parasthesias were elicited. Needle was removed completely intact without difficulty. The same procedure was repeated for all intended levels/ structures on the ipsilateral side, right L4, L5 medial branch/dorsal ramus with identical methodology, modified to compensate for new location, with similar results and no evidence of complication. The same exact procedure was repeated for all remaining levels on the contralateral side, left L3, L4, L5 medial branches/dorsal ramus, modified as necessary to accommodate for the new target location with identical findings/results and no evidence of complication. Images were saved and documented in the patient chart. Patient's skin was cleansed and sterile bandage applied. The patient tolerated the procedure well. The patient was transported to the recovery area in stable condition where they were observed for an appropriate amount of time prior to discharge, without evidence of complication. The patient was instructed to avoid excessive activity for the next 48 hours, including climbing and frequent use of stairs. Showers only for 48 hours. They were instructed not to drive or operate heavy
[2023-09-23 06:15] VITALS: BP 147/77; PULSE 62; RESP 20; TEMP 36.8; O2SAT 100
--- NOTE | 2023-09-23 06:48 | WPDANESEPPF ---
Anes - Initial Pre Proc Eval Procedure: Operation Date: 09/23/23 07:30 Proposed Procedures p Thermal Radiofrequency Ablation Bilateral L3, L4, L5 Medial Branches/Dorsal Rami Denervating the Bilateral L4-5, L5-S1 Facet Joints under Fluoroscopic Guidance - Ezekiel Dhillon MD Date/Time: 09/23/23 06:48 Surgeon: Ezekiel Dhillon MD Pre Op Diagnosis: Spondylosis with Myelopathy Lumbar Region Patient Data Age: 78 Gender: F Height: 1.57 m Weight: 51.2 kg Allergies Allergy/AdvReac Type Severity Reaction Status Date / Time No Known Allergies Allergy Verified 09/23/23 06:21 Home Medications Medication Instructions Recorded Confirmed Type hydrocortisone 2.5 % topical cream 1 applic topical TID PRN itching 09/12/21 09/15/23 Rx #30 grams cholecalciferol (vitamin D3) 25 1,000 unit PO DAILY #90 caps 02/07/22 09/15/23 Rx mcg (1,000 unit) capsule meclizine 25 mg tablet 25 mg PO BID PRN dizziness #90 tabs 12/31/22 09/15/23 Rx aspirin 81 mg tablet,delayed 81 mg PO DAILY #90 tabs 01/28/23 09/15/23 Rx release (Adult Aspirin Regimen) cetirizine 10 mg tablet 10 mg PO DAILY PRN Allergy 01/28/23 09/15/23 Rx Symptoms #90 tabs clobetasol 0.05 % scalp solution 1 applic topical BID #50 mL 01/28/23 09/15/23 Rx fluticasone propionate 50 2 spray intranasal DAILY #54.6 mL 01/28/23 09/15/23 Rx mcg/actuation nasal spray,suspension (Allergy Relief (fluticasone)) hydrochlorothiazide 12.5 mg tablet 12.5 mg PO DAILY #90 tabs 01/28/23 09/15/23 Rx levothyroxine 50 mcg tablet 50 mcg PO DAILY #90 tabs 01/28/23 09/15/23 Rx (Synthroid) lisinopril 20 mg tablet 20 mg PO DAILY #90 tabs 01/28/23 09/15/23 Rx metoprolol succinate 50 mg 50 mg PO DAILY #90 tabs 01/28/23 09/15/23 Rx tablet,extended release 24 hr omeprazole 20 mg capsule,delayed 20 mg PO DAILY #90 caps 01/28/23 09/15/23 Rx release simvastatin 40 mg tablet 40 mg PO DAILY #90 tabs 01/28/23 09/15/23 Rx calcium carbonate 500 mg calcium 500 mg PO BID #60 tabs 01/30/23 09/15/23 Rx (1,250 mg) chewable tablet (Calcium 500) benzonatate 100 mg capsule 100 mg PO TID cough #90 caps 03/17/23 09/15/23 Rx lorazepam 0.5 mg tablet 0.5 mg PO QHS PRN Anxiety #90 tabs 03/17/23 09/23/23 Rx Patient hx anesthesia problems: none Family hx anesthesia problems: none Results Review: All pre-operative results and documents have been reviewed as part of the pre-operative evaluation. [facility] Past Medical History Medical History Abdominal discomfort Anxiety Aortic regurgitation Bloating BMI 21.0-21.9, adult CAD (coronary artery disease) Clavicular fracture Right clavicle, 12/31/2022 H/O: HTN (hypertension) Hypercholesteremia Hyperlipidemia Hypertension Left hip pain Leg numbness Low back pain Lumbar spondylosis with myelopathy Pancreatic duct dilated Syncope Weight loss Surgical History Surgical History History of hysterectomy Hx of cardiac cath Stented coronary artery Family History Family History Father No problems noted. Mother No problems noted. Sibling No problems noted. Social History Social History Smoking status: Never smoker Tobacco type: cigarettes Second hand tobacco smoke exposure: No Alcohol intake: current Drinks per week: 3 Alcohol use details: WINE WITH DINNER Substance use: never Substance use type: does not use Lack of Transportation: No Lack of Food: Never True Current Housing: I Have Housing Concerned About Future Housing: No Difficulty Paying Gas/Electric Bills: No Difficulty Paying for Meds: No Currently Unemployed: No Education: Grade School Difficulty w/ Childcare or Family Care: No Living arrangements: with family Occupation/Edu
[2023-09-23] MEDS: LACTATED RINGERS 1,000 ML 30 ML IV CONT (06:56)
[2023-09-23] MEDS: LIDOCAINE HCL 1% PF INJ 5 ML VIAL AFFCTD EYE (08:00)
[2023-09-23] MEDS: LIDOCAINE HCL 2% PF INJ 5 ML VIAL INFILTRATE (08:00)
[2023-09-23] MEDS: BUPivacaine HCL 0.5% 10 ML AMP 5 ML INFILTRATE (08:00)
[2023-09-23 08:21] VITALS: BP 155/85; PULSE 59; RESP 18; O2SAT 97
[2023-09-23 08:31] VITALS: BP 142/73; PULSE 63; RESP 20; O2SAT 97
[2023-09-23 08:51] VITALS: BP 158/78; PULSE 62; RESP 20; O2SAT 98
[2023-09-23 09:01] VITALS: BP 151/76; PULSE 63; RESP 20; O2SAT 98
--- NOTE | 2023-09-23 09:27 | WPDANESPN ---
Anes - Prog Note Post-Op Date/Time: 09/23/23 09:27 Cardiovascular status: normal Respiratory status: normal Airway patency: baseline Mental status: baseline Post-Op hydration status: normal Vital Signs: Last Vital Signs Temp 36.8 C 09/23/23 06:15 Pulse 63 09/23/23 09:01 Resp 20 09/23/23 09:01 BP 151/76 H 09/23/23 09:01 Pulse Ox 98 09/23/23 09:01 O2 Del Method Room Air 09/23/23 09:01 Pain Score (VAS): 0 I/O: Intake & Output 09/22/23 09/23/23 09/23/23 23:59 07:59 15:59 Intake Total 550 Balance 550 Post-procedural complaints: none Patient Feedback: Patient satisfied with anesthetic care. Other Findings: Patient vital signs back to baseline. Patient denies nausea and vomiting. Patient's pain under control. Patient OK for discharge.
== END 2023-09-23 09:16 | disposition home or self-care (01) ==
PROVIDERS: PCP Family Medicine; Visit Provider Anesthesiology Pain Medicine
PROC: (CPT 64635; principal; 2023-09-23 07:30)
DX: M47.817 Spondylosis without myelopathy or radiculopathy, lumbosacral region (principal); M54.59 Other low back pain
CPT/HCPCS: 64635 ×2; 99199

== ENCOUNTER 2024-01-28 07:55 | Outpatient (CLI) | payer MEDICARE, OTHER, SELFPAY ==
[2024-01-28 08:47] LABS: Hematocrit 40.5 % (37.0-47.0); Hemoglobin 13.4 g/dL (12.0-15.0); Mean Corpuscular HGB Conc 33.1 g/dl (32-36); Mean Corpuscular Hemoglobin 30.4 pg (26-34); Mean Corpuscular Volume 91.8 fl (80-100); Mean Platelet Volume 9.2 fl (7.4-10.4); Platelet Count Result 251 k/mm3 (150-375); Red Blood Count 4.41 M/mm3 (4.2-5.4); Red Cell Distribution Width 11.7 % (11.5-14.5); White Blood Count 6.1 K/mm3 (4.5-10.0)
[2024-01-28 09:01] LABS: Alanine Aminotransferase 22 U/L (6-35); Alkaline Phosphatase 60 U/L (38-126); Anion Gap 10 mmol/L (4-12); Aspartate Amino Transferase 32 U/L (14-36); Bilirubin,Total 0.8 mg/dL (0.2-1.3); Blood Urea Nitrogen 18 mg/dL (7-17); Calcium 9.1 mg/dL (8.4-10.2); Carbon Dioxide 28 mmol/L (22-30); Chloride 105 mmol/L (98-107); Cholesterol 135 mg/dL (0-200); Estimated Glomerular Filt Rate > 60; Glucose 106 mg/dL (65-110); HDL Direct 47 mg/dL; Potassium 3.9 mmol/L (3.4-5.0); Sodium 143 mmol/L (137-145); Triglycerides 143 mg/dL (<150)
[2024-01-28 09:12] LABS: LDL Cholesterol Direct 70 mg/dL
[2024-01-28 09:18] LABS: Vitamin D 25 Hydroxy 62.5 ng/mL
== END 2024-01-28 07:56 | disposition home or self-care (01) ==
PROVIDERS: PCP Family Medicine; Visit Provider Nurse Practitioner Family
DX: E55.9 Vitamin D deficiency, unspecified (principal); F41.9 Anxiety disorder, unspecified; I10 Essential (primary) hypertension; K21.9 Gastro-esophageal reflux disease without esophagitis; R01.1 Cardiac murmur, unspecified; E78.2 Mixed hyperlipidemia; R14.0 Abdominal distension (gaseous)
CPT/HCPCS: 36415; 80053; 80061; 82306; 84443; 85027

== ENCOUNTER 2024-09-13 08:15 | Outpatient (CLI) | payer MEDICARE, OTHER, SELFPAY ==
[2024-09-13 08:53] LABS: Basophils Absolute Auto 0.1 K/mm3 (0.0-0.1); Basophils Percent Auto 1.1 % (0.2-1.2); Eosinophils Absolute Auto 0.2 K/mm3 (0-0.3); Eosinophils Percent Auto 3.7 % (0-4.4); Hematocrit 38.3 % (37.0-47.0); Hemoglobin 12.9 g/dL (12.0-15.0); Immature Granulocyte Absolute 0.01 K/mm3 (0.00-0.031); Immature Granulocyte Percent A 0.2 % (0-0.5); Lymphocytes Absolute Auto 2.76 K/mm3 (0.9-3.2); Lymphocytes Percent Auto 44.8 % (18.3-44.2); Mean Corpuscular HGB Conc 33.7 g/dl (32-36); Mean Corpuscular Hemoglobin 30.8 pg (26-34); Mean Corpuscular Volume 91.4 fl (80-100); Monocytes Absolute Auto 0.5 K/mm3 (0.1-0.6); Monocytes Percent Auto 7.8 % (2.6-8.5); Neutrophils Absolute Auto 2.6 K/mm3 (1.3-6.7); Neutrophils Percent Auto 42.4 % (45.5-73.1); Platelet Count Result 235 k/mm3 (150-375); Red Blood Count 4.19 M/mm3 (4.2-5.4); Red Cell Distribution Width 11.6 % (11.5-14.5); White Blood Count 6.2 K/mm3 (4.5-10.0)
[2024-09-13 09:10] LABS: Anion Gap 13 mmol/L (4-12); Blood Urea Nitrogen 14 mg/dL (7-17); Calcium 9.2 mg/dL (8.4-10.2); Carbon Dioxide 26 mmol/L (22-30); Chloride 104 mmol/L (98-107); Estimated Glomerular Filt Rate > 60; Glucose 100 mg/dL (65-110); Potassium 3.9 mmol/L (3.4-5.0); Sodium 143 mmol/L (137-145)
== END 2024-09-13 08:16 | disposition home or self-care (01) ==
LOC: ANHLAB 08:16
PROVIDERS: PCP Family Medicine; Visit Provider Physician Assistant Medical
DX: R00.2 Palpitations (principal); R01.1 Cardiac murmur, unspecified
CPT/HCPCS: 36415; 80048; 84443; 85025

== ENCOUNTER 2024-09-23 10:24 | Outpatient (CLI) | payer MEDICARE, OTHER, SELFPAY ==
--- OUTSIDE RECORDS SUMMARY | 2024-09-23 10:47 | XMS_ITS | Clinical Summary ---
Author Organization [facility] Address [address] [place] [id number] Care Team Providers Care Metal Wire Technician Name Role Phone Unavailable Primary Care Provider Unavailabl e Social History Tobacco Use Types Packs/Day Years Used Date Smoking Tobacco: Never Assessed Comments Unknown Sex and Gender Information Value Date Recorded Sex Assigned at Not on file Legal Sex Female 7:26 PM CDT Gender Identity Not on file Sexual Orientation Not on file Plan of Treatment Health Maintenance Due Date Last Done Comments Hepatitis C 1963 DTaP, Tdap and Td Vaccines ( 1 - Tdap) 02/23/1964 Zoster Vaccines (1 of 2) 1995 Dexa Scan (General) 2010 Pneumococcal Vaccine: 65+ Ye ars (1 of 1 - PCV) 2010 RSV Immunization or 60+ Years (1 - 1-dose 75+ series) 02/23/2020 COVID-19 Vaccine ( - 2023-2 5 season) 2024 Influenza Adult (#1) 2024 Meningococcal B Vaccine Aged Out No l onger eligible based on patient's age to complete this topic Meningococcal Vaccine Aged Out No susi leonard eligible based on patient's age to complete this topic RSV Immunizations Under 20 Months Aged Out No longer eligible based on patient's age to complete this topic
== END 2024-09-23 10:25 | disposition home or self-care (01) ==
LOC: ANHCARD 10:25
PROVIDERS: PCP Family Medicine; Visit Provider Physician Assistant Medical
DX: R01.1 Cardiac murmur, unspecified (principal); R00.2 Palpitations
CPT/HCPCS: 93242

== ENCOUNTER 2024-11-29 14:12 | Outpatient (CLI) | payer MEDICARE, OTHER, SELFPAY ==
--- NOTE | 2024-11-29 14:29 | ECHO_ITS ---
Patient Info Name: Cinthia Ross Age: 79 years : 1945 Gender: Female Ht: 62 in Wt: 110 lbs BSA: 1.48 m2 HR: 63 bpm BP: 149 / 78 mmHg Technical Quality: Good Exam Date: 11/29/2024 2:38 PM Exam Location: Echo Lab Patient Status: Outpatient Admit Date: 11/29/2024 Staff Ordering Physician: Kwan Marinelli DO Outside Plant Supervisor: Jessica Alexandre RDCS Attending Provider: Kwan Marinelli DO Referring Physician: Yves YO; Exam Type: CA echo doppler color flow Study Info Indications I35.1 - Nonrheumatic aortic (valve) insufficiency Complete two-dimensional, color flow and Doppler transthoracic echocardiogram is performed. Summary 1. Complete two-dimensional, color flow and Doppler transthoracic echocardiogram is performed. 2. Left ventricular chamber dimension is normal. 3. Left ventricular systolic function is normal, estimated at 60-65%. 4. There is mild concentric increased left ventricular wall thickness. 5. The left ventricular diastolic function is grade I diastolic dysfunction. 6. E/e' 13 is mildly elevated. 7. There is mild aortic valve sclerosis. 8. There is mild aortic valve regurgitation. 9. There is trace tricuspid valve regurgitation. 10. No pulmonary hypertension, estimated pulmonary arterial systolic pressure is 29 mmHg. 11. There is trace pulmonic regurgitation. Left Ventricle E/e' 13 is mildly elevated. Left ventricular chamber dimension is normal. Left ventricular systolic function is normal, estimated at 60-65%. There is mild concentric increased left ventricular wall thickness. The left ventricular diastolic function is grade I diastolic dysfunction. Right Ventricle Right ventricular chamber dimension is normal. Right ventricular systolic function is normal. Left Atria Left atrial chamber dimension is normal. Right Atria Right atrial chamber dimension is normal. Aortic Valve The aortic valve is trileaflet. There is mild aortic valve sclerosis. There is no aortic valve stenosis. There is mild aortic valve regurgitation. Pulmonic Valve There is trace pulmonic regurgitation. Mitral Valve There is no mitral valve stenosis. There is no mitral valve regurgitation. Tricuspid Valve There is trace tricuspid valve regurgitation. No pulmonary hypertension, estimated pulmonary arterial systolic pressure is 29 mmHg. Pericardium/Pleural There is no pericardial effusion. Inferior Vena Cava Normal inferior vena cava with >50% collapse upon inspiration consistent with normal right atrial pressure, 5 mmHg. Aorta The aortic root size at the sinus of Valsalva is normal. Left Ventricular Outflow Tract Name Value Normal LVOT 2D LVOT Diameter 1.9 cm LVOT Doppler LVOT Peak Gradient 6 mmHg LVOT Mean Gradient 3 mmHg LVOT VTI 26 cm LVOT VTI/AV VTI Ratio 0.8 LVOT Stroke Volume 70 ml LVOT CO 4.1 l/min LVOT CI 2.8 l/min/m2 Pulmonic Valve Name Value Normal RVOT Doppler RVOT Peak Gradient 2 mmHg PV Doppler PV Peak Gradient 3 mmHg Mitral Valve Name Value Normal MV Doppler MV Decel [place] 735 cm/s2 MV PHT 37 ms MV Area (PHT) 5.9 cm2 4.0-5.0 MV Diastolic Function MV E Peak Velocity 95 cm/s MV A Peak Velocity 119 cm/s MV E/A 0.8 MV Decel Time 129 ms Tricuspid Valve Name Value Normal TV Regurgitation Doppler TR Peak Velocity 245 cm/s TR Peak Gradient 21 mmHg Estimated PAP/RSVP RA Pressure 5 mmHg <=5 PA Systolic Pressure 29 mmHg <36 RV Systolic Pressure 29 mmHg <36 Aorta Name Value Normal Ascending Aorta Ao Root Diameter (MM) 3.2 cm Ao Root Diam Index (MM) 2.1 cm/m2 Aortic Valve Name Value Normal AV Doppler AV Peak Velocity 155 cm/s AV Peak Gradient 10 mmHg AV Mean Gradient 5 mmHg AV VTI 32 cm AV Area (Cont Eq VTI) 2.2 cm2 >=3.0 AV Area (Cont Eq Edward) 2.2 cm2 AV Regurgitation 2D LVOT Area 2.7 cm2 AV Regurgitation Doppler AR Decel Time 1,908 ms AR Decel [place] 198 cm/s2 AR PHT 553 ms Ventricles Name Value Normal LV Dimensions 2D/MM IVS Diastolic Thickness (2D) 0.7 cm 0.6-1.0 IVS Diastole Thickness (MM) 1.2 cm 0.6-0.9 LVID Diastole (2D) 4.8 cm 3.8-5.2 LVID Diastole (MM) 6.1 cm 3.8-5.2 LVIW Diastolic Thickness (2D) 1.0 cm 0.6-0.9 LVIW Diastolic Thickness (MM) 0.9 cm 0.6-0.9 LVID Systole (2D) 3.3 cm 2.2-3.5 LVID Systole (MM) 4.0 cm 2.2-3.5 LVOT Diameter 1.9 cm LV Mass (2D Cubed) 136.18 g 67.00-162.00 LV Mass Index (2D Cubed) 92 g/m2 43-95 Relative Wall Thickness (2D) 0.41 LV Mass (MM Cubed) 253.59 g 67.00-162.00 LV Mass Index (MM Cubed) 172 g/m2 43-95 Relative Wall Thickness (MM) 0.29 LV Fractional Shortening/Ejection Fraction 2D/MM LV Fractional Shortening (2D) 31 % 27-45 LV Fractional Shortening (MM) 34 % 27-45 LV EF (MM Teicholz) 62 % 54-74 LV EF (2D Teicholz) 58 % 54-74 LV Diastolic Volume (4C MOD) 57 ml LV EF (4C MOD) 69 % LV Diastolic Volume (2C MOD) 55 ml LV EF (2C MOD) 73 % LV Diastolic Volume (BP MOD) 56 ml 46-106 LV Diastolic Volume Index (BP MOD) 38 ml/m2 29-61 LV Systolic Volume (BP MOD) 16 ml 14-42 LV Systolic Volume Index (BP MOD) 11 ml/m2 8-24 LV EF (BP MOD) 71 % 54-74 LV Diastolic Length (4C) 7.2 cm LV Systolic Length (4C) 6.4 cm LV Stroke Volume (4C MOD) 39 ml Atria Name Value Normal LA Dimensions LA Dimension (MM) 2.9 cm 2.7-3.8 LA Volume (4C A-L) 28 ml LA Volume (BP A-L) 32 ml RA Dimensions RA Area (4C) 13.4 cm2 <=18.0 Report Signatures
--- OUTSIDE RECORDS SUMMARY | 2024-11-29 16:16 | XMS_ITS | Clinical Summary ---
Author Organization [facility] Address [address] [place] [id number] Care Team Providers Care Compressor House Operator Name Role Phone Unavailable Primary Care Provider [...] Td Vaccines ( 1 - Tdap) 02/23/1964 Pneumococcal Vaccine: 50+ Ye ars (1 of 1 - PCV) 1995 Zoster Vaccines (1 of 2) 1995 Dexa Scan (General) 2010 RSV Immunization or 60+ Years (1 - 1-dose 75+ series) 02/23/2020 COVID-19 Vaccine (2023-2 5 season) 2024 Meningococcal B Vaccine Aged Out No l onger eligible based on patient's age to complete this topic Meningococcal Vaccine Aged Out No susi leonard eligible based on patient's age to complete this topic RSV Immunizations Under 20 Months Aged Out No longer eligible based on patient's age to complete this topic
== END 2024-11-29 14:13 | disposition home or self-care (01) ==
PROVIDERS: PCP Family Medicine; Visit Provider Internal Medicine Cardiovascular Disease
DX: I35.1 Nonrheumatic aortic (valve) insufficiency (principal); I36.1 Nonrheumatic tricuspid (valve) insufficiency
CPT/HCPCS: 93306

== ENCOUNTER 2025-01-17 08:13 | Outpatient (CLI) | payer MEDICARE, OTHER, SELFPAY ==
[2025-01-17 09:01] LABS: Basophils Absolute Auto 0.1 K/mm3 (0.0-0.1); Eosinophils Absolute Auto 0.3 K/mm3 (0-0.3); Eosinophils Percent Auto 5.2 % (0-4.4); Hematocrit 37.5 % (37.0-47.0); Hemoglobin 12.8 g/dL (12.0-15.0); Immature Granulocyte Absolute 0.01 K/mm3 (0.00-0.031); Immature Granulocyte Percent A 0.2 % (0-0.5); Lymphocytes Absolute Auto 3.04 K/mm3 (0.9-3.2); Lymphocytes Percent Auto 51.3 % (18.3-44.2); Mean Corpuscular HGB Conc 34.1 g/dl (32-36); Mean Corpuscular Hemoglobin 31.1 pg (26-34); Mean Platelet Volume 9.2 fl (7.4-10.4); Monocytes Absolute Auto 0.5 K/mm3 (0.1-0.6); Monocytes Percent Auto 7.8 % (2.6-8.5); Neutrophils Absolute Auto 2.1 K/mm3 (1.3-6.7); Neutrophils Percent Auto 34.5 % (45.5-73.1); Platelet Count Result 220 k/mm3 (150-375); Red Blood Count 4.12 M/mm3 (4.2-5.4); Red Cell Distribution Width 11.5 % (11.5-14.5); White Blood Count 5.9 K/mm3 (4.5-10.0)
[2025-01-17 09:12] LABS: Alanine Aminotransferase 26 U/L (6-35); Albumin Level 4.6 g/dL (3.5-5.1); Alkaline Phosphatase 58 U/L (38-126); Anion Gap 9 mmol/L (4-12); Aspartate Amino Transferase 33 U/L (14-36); Bilirubin,Total 0.8 mg/dL (0.2-1.3); Blood Urea Nitrogen 18 mg/dL (7-17); Calcium 9.3 mg/dL (8.4-10.2); Carbon Dioxide 27 mmol/L (22-30); Chloride 104 mmol/L (98-107); Cholesterol 114 mg/dL (0-200); Estimated Glomerular Filt Rate > 60; Glucose 104 mg/dL (65-110); HDL Direct 42 mg/dL; Sodium 140 mmol/L (137-145); Total Protein 7.9 g/dL (6.3-8.2); Triglycerides 111 mg/dL (<150)
[2025-01-17 09:22] LABS: LDL Cholesterol Direct 46 mg/dL
== END 2025-01-17 08:14 | disposition home or self-care (01) ==
PROVIDERS: PCP Family Medicine; Visit Provider Physician Assistant Medical
DX: F41.1 Generalized anxiety disorder (principal); I10 Essential (primary) hypertension; E78.2 Mixed hyperlipidemia; E03.9 Hypothyroidism, unspecified; E78.5 Hyperlipidemia, unspecified
CPT/HCPCS: 36415; 80053; 80061; 84443; 85025